=== PATIENT | female | born 1945 | race African-American/Black ===

== ENCOUNTER 2024-04-03 07:28 | Inpatient (IN) | payer MEDICARE ==
[~2024-04-03] VITALS: Ht 157.5 cm; Wt 72.6 kg
[2024-04-03] MEDS: IV NORMAL SALINE 1000 ML BAG IV ONE (08:15)
[2024-04-03] MEDS: PANTOPRAZOLE SODIUM 40 MG VIAL IV ONE (08:15)
[2024-04-03] MEDS ORDERED: AMIL5TAB9 PO (08:17)
[2024-04-03] MEDS ORDERED: TRAV5DRO EACHEYE (08:17)
[2024-04-03] MEDS ORDERED: MAGN250T10 PO (08:17)
[2024-04-03] MEDS ORDERED: MULT-225 PO (08:17)
[2024-04-03] MEDS ORDERED: PANT40TA49 PO (08:17)
[2024-04-03] MEDS ORDERED: CALC-853 PO (08:17)
[2024-04-03] MEDS ORDERED: DILT-4 PO (08:17)
[2024-04-03] MEDS ORDERED: ATOR20TA PO (08:17)
[2024-04-03] MEDS ORDERED: CYAN25006 SL (08:17)
[2024-04-03] MEDS ORDERED: FERR325T30 PO (08:17)
[2024-04-03] MEDS ORDERED: PANTOPRAZOLE SODIUM 40 MG VIAL ONE (09:25)
[2024-04-03 09:56] LABS: BASOPHILS % (AUTO) 0.2 % (0.0-2.0); EOSINOPHILS % (AUTO) 0.2 % (0.0-7.0); HEMATOCRIT 23.1 % (31.2-41.9); LYMPHOCYTES # (AUTO) 0.7 K/uL (0.8-4.8); MEAN CORPUSCULAR HEMOGLOBIN 33.1 uug (24.7-32.8); MEAN CORPUSCULAR HGB CONC 34 g/dL (32.3-35.6); MEAN CORPUSCULAR VOLUME 96.2 fL (75.5-95.3); MONOCYTES # (AUTO) 0.5 K/uL (0.1-1.30); MONOCYTES % (AUTO) 4.4 % (0.0-11.0); NEUTROPHILS # (AUTO) 10.8 K/uL (1.8-8.9); NEUTROPHILS % (AUTO) 89.2 % (38.5-71.5); PLATELET COUNT (AUTO) 197 K/uL (179-408); RED CELL DISTRIBUTION WIDTH 15.1 % (12.3-17.7); WHITE BLOOD COUNT (AUTO) 12.1 K/uL (3.8-11.8)
[2024-04-03 09:58] LABS: DIFFERENTIAL COMMENT 1
[2024-04-03 10:07] LABS: CALCIUM 8.1 mg/dL (8.5-10.1); CARBON DIOXIDE 30 mmol/L (21-32); CHLORIDE 109 mmol/L (98-107); CREATININE 1.1 mg/dL (0.6-1.3); GLUCOSE 138 mg/dL (74-106); POTASSIUM 3.9 mmol/L (3.5-5.1); SODIUM SERUM 146 mmol/L (136-145); UREA NITROGEN, BLOOD 15 mg/dL (7-18)
[2024-04-03 10:16] LABS: ALANINE AMINOTRANSFERASE 15 U/L (14-59); ALBUMIN 2.4 g/dL (3.4-5.0); ALKALINE PHOSPHATASE 47 U/L (50-136); ASPARTATE AMINOTRANSFERASE 17 U/L (15-37); BILIRUBIN,DIRECT 0.1 mg/dL (0.0-0.2); BILIRUBIN,TOTAL 0.5 mg/dL (0.2-1.0)
[2024-04-03] MEDS ORDERED: hydrALAZINE HCL 20 MG/1 ML VIAL IV PRN (10:30)
[2024-04-03] MEDS ORDERED: ONDANSETRON 4 MG/2 ML VIAL IV PRN (10:30)
[2024-04-03] MEDS ORDERED: MORPHINE SULFATE 2 MG/1 ML DISP.SYRIN IVP PRN (10:30)
[2024-04-03] MEDS ORDERED: ACETAMINOPHEN 325 MG TABLET PO PRN (10:30)
[2024-04-03] MEDS: IV NS 1000 ML 1,000 ML IV SCH (10:45)
[2024-04-03 11:31] LABS: *BILIRUBIN,URIN NEGATIVE (NEGATIVE); *BLOOD, URINE NEGATIVE (NEGATIVE); *CLARITY,URINE CLEAR (CLEAR); *COLOR,URINE YELLOW (YELLOW); *KETONES,URINE NEGATIVE (NEGATIVE); *PROTEIN,URINE NEGATIVE (NEGATIVE); *UROBILINOGEN,URINE 0.2 E.U./dl (NORMAL); LEUKOCYTE ESTERASE ,URINE 1+ (NEGATIVE); NITRITE, URINE NEGATIVE (NEGATIVE); UGLUCOSE NEGATIVE (NEGATIVE)
[2024-04-03 12:01] LABS: BACTERIA,URINE FEW /HPF (NONE SEEN); WBC,URINE 20-50 /HPF (0-3)
[2024-04-03 12:02] LABS: SQUAMOUS EPITHELIAL CELL,UR FEW /HPF (NONE SEEN)
[2024-04-03 12:48] LABS: HEMOGLOBIN 6.9 g/dL (10.9-14.3)
[2024-04-03 12:49] LABS: HEMATOCRIT 19.9 % (31.2-41.9)
[2024-04-03 15:48] VITALS: BP 134/68; TEMP 98.8; O2SAT 97
[2024-04-03] MEDS: PANTOPRAZOLE SODIUM 40 MG VIAL IV SCH (17:00)
[2024-04-03] MEDS ORDERED: LIDOCAINE 4% TOPICAL 50 ML BOTTLE ONE (17:57)
[2024-04-03] MEDS ORDERED: PROPOFOL 200 MG/20 ML BOTTLE ONE (17:58)
[2024-04-03 18:16] LABS: BASOPHILS % (AUTO) 0.2 % (0.0-2.0); EOSINOPHILS # (AUTO) 0.1 K/uL (0.0-0.7); EOSINOPHILS % (AUTO) 0.8 % (0.0-7.0); HEMATOCRIT 23.1 % (31.2-41.9); HEMOGLOBIN 8.1 g/dL (10.9-14.3); LYMPHOCYTES # (AUTO) 1.1 K/uL (0.8-4.8); LYMPHOCYTES % (AUTO) 11.4 % (20.5-51.5); MEAN CORPUSCULAR HEMOGLOBIN 33.3 uug (24.7-32.8); MEAN CORPUSCULAR HGB CONC 35 g/dL (32.3-35.6); MEAN CORPUSCULAR VOLUME 95.7 fL (75.5-95.3); MONOCYTES # (AUTO) 0.7 K/uL (0.1-1.30); MONOCYTES % (AUTO) 6.8 % (0.0-11.0); NEUTROPHILS # (AUTO) 7.8 K/uL (1.8-8.9); NEUTROPHILS % (AUTO) 80.8 % (38.5-71.5); PLATELET COUNT (AUTO) 149 K/uL (179-408); WHITE BLOOD COUNT (AUTO) 9.7 K/uL (3.8-11.8)
[2024-04-03 18:17] LABS: DIFFERENTIAL COMMENT 1; RED BLOOD CELL COUNT(AUTO) 2.42 MIL/uL (3.63-4.92)
[2024-04-03 19:30] VITALS: BP 132/62; TEMP 98.3; O2SAT 99
[2024-04-03] MEDS: ATORVASTATIN 20 MG TABLET PO SCH (20:17)
[2024-04-04] VITALS (7 sets, daily range): BP systolic 117–152; BP diastolic 53–85; TEMP 98–98.8; O2SAT 97–98
[2024-04-04 04:45] LABS: BASOPHILS % (AUTO) 0.3 % (0.0-2.0); EOSINOPHILS # (AUTO) 0.2 K/uL (0.0-0.7); EOSINOPHILS % (AUTO) 2.3 % (0.0-7.0); HEMATOCRIT 21.6 % (31.2-41.9); HEMOGLOBIN 7.5 g/dL (10.9-14.3); LYMPHOCYTES # (AUTO) 0.9 K/uL (0.8-4.8); LYMPHOCYTES % (AUTO) 13.3 % (20.5-51.5); MEAN CORPUSCULAR HEMOGLOBIN 32.9 uug (24.7-32.8); MEAN CORPUSCULAR HGB CONC 35 g/dL (32.3-35.6); MEAN CORPUSCULAR VOLUME 94.9 fL (75.5-95.3); MONOCYTES # (AUTO) 0.5 K/uL (0.1-1.30); MONOCYTES % (AUTO) 7.2 % (0.0-11.0); NEUTROPHILS # (AUTO) 5.5 K/uL (1.8-8.9); NEUTROPHILS % (AUTO) 76.9 % (38.5-71.5); PLATELET COUNT (AUTO) 136 K/uL (179-408); RED CELL DISTRIBUTION WIDTH 15.2 % (12.3-17.7); WHITE BLOOD COUNT (AUTO) 7.1 K/uL (3.8-11.8)
[2024-04-04 05:07] LABS: ALANINE AMINOTRANSFERASE 11 U/L (14-59); ALKALINE PHOSPHATASE 40 U/L (50-136); ASPARTATE AMINOTRANSFERASE 14 U/L (15-37); BILIRUBIN,TOTAL 0.7 mg/dL (0.2-1.0); CALCIUM 6.9 mg/dL (8.5-10.1); CARBON DIOXIDE 25 mmol/L (21-32); CHLORIDE 108 mmol/L (98-107); CREATININE 0.8 mg/dL (0.6-1.3); GLUCOSE 104 mg/dL (74-106); PHOSPHOROUS 2.4 mg/dL (2.5-4.9); POTASSIUM 3.6 mmol/L (3.5-5.1); RED BLOOD CELL COUNT(AUTO) 2.27 MIL/uL (3.63-4.92); SODIUM SERUM 140 mmol/L (136-145); TOTAL PROTEIN, SERUM 5.3 g/dL (6.4-8.2); UREA NITROGEN, BLOOD 13 mg/dL (7-18)
[2024-04-04 05:08] LABS: DIFFERENTIAL COMMENT 1
[2024-04-04 13:24] LABS: HEMATOCRIT 21.1 % (31.2-41.9)
[2024-04-04 14:07] LABS: HEMOGLOBIN 7.3 g/dL (10.9-14.3)
[2024-04-04] MEDS: NEUTRA PHOS PACKET PO ONE (16:53)
[2024-04-04] MEDS: DILTIAZEM HCL 30 MG TABLET PO ONE (18:38)
[2024-04-05] VITALS (12 sets, daily range): BP systolic 110–140; BP diastolic 50–74; TEMP 97–98.6; O2SAT 97–100
[2024-04-05] MEDS: DILTIAZEM HCL CD 120 MG CAP.SR.24H PO SCH (08:45)
[2024-04-05] MEDS: DILTIAZEM HCL CD 120 MG CAP.SR.24H PO ONE (10:04)
[2024-04-05 13:03] LABS: HEMATOCRIT 25.4 % (31.2-41.9); HEMOGLOBIN 8.9 g/dL (10.9-14.3)
[2024-04-05 13:12] LABS: CALCIUM 7.2 mg/dL (8.5-10.1); CARBON DIOXIDE 27 mmol/L (21-32); CHLORIDE 109 mmol/L (98-107); CREATININE 0.7 mg/dL (0.6-1.3); GLUCOSE 111 mg/dL (74-106); PHOSPHOROUS 2.6 mg/dL (2.5-4.9); SODIUM SERUM 143 mmol/L (136-145); UREA NITROGEN, BLOOD 5 mg/dL (7-18)
[2024-04-05] MEDS: PANTOPRAZOLE SODIUM 40 MG VIAL IV SCH (20:37)
[2024-04-05] MEDS: CEFTRIAXONE 1 G in IV DEXTROSE 5% 50 ML IV SCH (20:37)
[2024-04-06] VITALS: BP 124/54; TEMP 99; O2SAT 96
[2024-04-06 04:00] VITALS: BP 115/56; TEMP 98.4; O2SAT 96
[2024-04-06 06:39] LABS: BASOPHILS % (AUTO) 0.5 % (0.0-2.0); EOSINOPHILS # (AUTO) 0.2 K/uL (0.0-0.7); EOSINOPHILS % (AUTO) 2.6 % (0.0-7.0); HEMATOCRIT 24.6 % (31.2-41.9); HEMOGLOBIN 8.6 g/dL (10.9-14.3); LYMPHOCYTES # (AUTO) 0.9 K/uL (0.8-4.8); MEAN CORPUSCULAR HEMOGLOBIN 32.5 uug (24.7-32.8); MEAN CORPUSCULAR HGB CONC 35 g/dL (32.3-35.6); MEAN CORPUSCULAR VOLUME 93.1 fL (75.5-95.3); MONOCYTES # (AUTO) 0.5 K/uL (0.1-1.30); NEUTROPHILS # (AUTO) 4.3 K/uL (1.8-8.9); NEUTROPHILS % (AUTO) 73.9 % (38.5-71.5); PLATELET COUNT (AUTO) 166 K/uL (179-408); RED BLOOD CELL COUNT(AUTO) 2.64 MIL/uL (3.63-4.92); RED CELL DISTRIBUTION WIDTH 15.9 % (12.3-17.7); WHITE BLOOD COUNT (AUTO) 5.8 K/uL (3.8-11.8)
[2024-04-06 06:45] LABS: DIFFERENTIAL COMMENT 1
[2024-04-06 06:56] LABS: CALCIUM 7.1 mg/dL (8.5-10.1); CARBON DIOXIDE 28 mmol/L (21-32); CHLORIDE 109 mmol/L (98-107); CREATININE 0.7 mg/dL (0.6-1.3); GLUCOSE 110 mg/dL (74-106); MAGNESIUM 1.8 mg/dL (1.8-2.4); PHOSPHOROUS 2.5 mg/dL (2.5-4.9); POTASSIUM 3.1 mmol/L (3.5-5.1); SODIUM SERUM 144 mmol/L (136-145); UREA NITROGEN, BLOOD 3 mg/dL (7-18)
[2024-04-06 07:58] VITALS: BP 111/64; TEMP 98.4; O2SAT 96
[2024-04-06] MEDS: PANTOPRAZOLE SODIUM 40 MG TABLET.DR PO SCH (08:20)
[2024-04-06 09:24] VITALS: BP 115/64
[2024-04-06] MEDS: DILTIAZEM HCL CD 120 MG CAP.SR.24H PO SCH (09:24)
[2024-04-06] MEDS: POTASSIUM CHLORIDE 20 MEQ TAB.PRT.SR PO ONE (10:48)
[2024-04-06] MEDS ORDERED: NITR100C11 PO (14:26)
[2024-04-06] MEDS ORDERED: SUCR1TAB31 PO (14:26)
[2024-04-07] MEDS ORDERED: DILTIAZEM HCL CD 240 MG CAP.SR.24H PO SCH (09:00)
== END 2024-04-06 15:18 | disposition home or self-care (01) | DRG 377 ==
LOC: ER 07:28 → TELE3 14:48
PROVIDERS: ADMIT Internal Medicine; ATTEND Internal Medicine
PROC: 0DB68ZX Excision of Stomach, Via Natural or Artificial Opening Endoscopic, Diagnostic (ICD-10-PCS; principal; 2024-04-03)
PROC: 30233N1 Transfusion of Nonautologous Red Blood Cells into Peripheral Vein, Percutaneous Approach (ICD-10-PCS; 2024-04-03)
PROC: 05HB33Z Insertion of Infusion Device into Right Basilic Vein, Percutaneous Approach (ICD-10-PCS; 2024-04-03)
DX: K25.0 Acute gastric ulcer with hemorrhage (principal); E43 Unspecified severe protein-calorie malnutrition; D62 Acute posthemorrhagic anemia; N39.0 Urinary tract infection, site not specified; I47.10 Supraventricular tachycardia, unspecified; E87.0 Hyperosmolality and hypernatremia; E66.9 Obesity, unspecified; Z68.29 Body mass index [BMI] 29.0-29.9, adult; R55 Syncope and collapse; K29.51 Unspecified chronic gastritis with bleeding; H40.9 Unspecified glaucoma; E78.5 Hyperlipidemia, unspecified; I35.8 Other nonrheumatic aortic valve disorders; I35.1 Nonrheumatic aortic (valve) insufficiency; Z88.1 Allergy status to other antibiotic agents; I11.9 Hypertensive heart disease without heart failure
CPT/HCPCS: 36415; 71045; 83735; 84100; 85018; 85025; 85730; 86850; 86900; 86901; 86920; 88312-TC; 88313-TC; 93307; A4606; A4663; G0378; J0696; J2470; J3490; J7040; P9016